=== PATIENT | male | born 1995 | race Caucasian/White ===

== ENCOUNTER 2018-12-05 12:46 | Emergency (ER) | payer OTHER ==
--- NOTE | 2018-12-05 13:37 | EDPHY ---
H & P Stated Complaint: lower back pain Source: Patient, Family (Father and mother) Exam Limitations: No limitations - Personal History Current Tetanus/Diphtheria Vaccine: Yes - Medical/Surgical History Hx Asthma: No Hx Chronic Respiratory Disease: No Hx Diabetes: No Hx Cardiac Disease: No Hx Renal Disease: No Hx Cirrhosis: No Hx Alcoholism: No Other PMH: LBP, spontaneous pneumothorax - Social History Smoking Status: Never smoked Time Seen by Provider: 12/05/18 13:37 HPI/ROS: HPI: This is a 23-year-old male who presents with Chief Complaint: Shortness of breath, lower back pain Location: Chest Quality: Shortness of breath Duration: Since last night Signs and Symptoms: + shortness of breath at rest, + shortness of breath on exertion, no cough, no chest pain, no palpitations, no lower extremity edema, no wheezing, no orthopnea, no paroxysmal nocturnal dyspnea, no fever, no injury/ trauma, no hemoptysis, no carpal pedal spasms Timing: Acute on chronic Severity: [id number] Context: Patient reports that yesterday evening when he returned from working at [employer] he started to feel short of breath at rest and inability to take a deep breath with the discomfort in his mid to lower back that was worsened with inspiration. Patient has a history of spontaneous pneumothorax mostly on the right side. Last pneumothorax occurred 2 weeks ago [facility]. History of uses a thorascopic surgery VATS). Was a [place] patient but now changed insurances to his stepfather's and Primary care provider is Dr. Jackson. Referral already made to Merchandising Stock Associate, Dr. Carter. Denies tobacco, marijuana use. Modifying Factors: None Comment: ROS: A comprehensive 10 system review of systems is otherwise negative aside from elements mentioned in the history of present illness. MEDICAL/SURGICAL/SOCIAL HISTORY: Medical history: Low back pain, spontaneous pneumothorax Surgical history: Bilateral lung surgeries Social history: Employed. CONSTITUTIONAL: Well-developed, well-nourished, thin young adult white male, awake and alert, no obvious distress HEENT: Atraumatic and normocephalic. NECK: supple, no midline tenderness Cardiovascular: Normal S1/S2, regular rate, regular rhythm, without murmur rub or gallop. PULMONARY/CHEST: Symmetrical and nontender. no crepitus. Clear to auscultation bilaterally. Good air movement. No accessory muscle usage. No stridor. ABDOMEN: Soft, nondistended, nontender. EXTREMITIES: 2/2 pulses, strength 5/5, DIP/PIP/MCP flexion/extension intact with good light touch sensation. no deformities, no clubbing, no cyanosis or edema. NEUROLOGICAL: no focal neuro deficits. GCS 15. Light touch sensation intact. SKIN: Warm and dry, no erythema. no rash. Good capillary refill. (Danielle Ellison) Constitutional: Initial Vital Signs Temperature (C) 36.3 C 12/05/18 12:49 Heart Rate 84 12/05/18 12:49 Respiratory Rate 18 12/05/18 12:49 Blood Pressure 111/83 H 12/05/18 12:49 O2 Sat (%) 98 12/05/18 12:49 O2 Delivery Mode Room Air Allergies/Adverse Reactions: No Known Allergies Allergy (Unverified 12/05/18 12:53) Home Medications: Medication Instructions Recorded NK [No Known Home Meds] 12/05/18 Medical Decision Making - Diagnostics Imaging Results: Imaging Impressions Chest X-Ray 12/05/18 13:39 Impression: Small right hydropneumothorax. Prior bilateral apical lung surgery. ADDENDUM: 12/05/18 1537 Impression: 1. Increasing right pleural effusion, with slight mass effect on the right heart border and mediastinum, new from prior study. ED Course/Re-evaluation: Vital signs reviewed and stable upon arrival. No hypoxia, respiratory distress. Oxygen sat 98% on room air. Chest x-ray ordered and shows Small right hydropneumothorax. Prior bilateral apical lung surgery. Dr. Hines consult to Dr. Humphrey who reviewed image via PACs. Requesting last x- ray from [facility] to compare. 1530: Chest x-ray images from October uploaded into PACs. Updated Dr. Tabor' s who is currently in surgery. Spoke with Dr. Humphrey who after review films recommends to discharge patient home with outpatient follow-up in 24 hr. Vital signs remain stable. 1715: End of shift. Signed over to Dr. Stokes pending Dr. Humphrey consult This patient was seen under the supervision of my secondary supervising physician. I evaluated care for this patient attending. Discussed this patient with Dr. Hines. (Danielle Ellison) Differential Diagnosis: Differential diagnosis includes but is not limited to pneumothorax. (Danielle Ellison) Other Provider: 1737: The patient seen by Dr. Humphrey, recommends discharge with office follow-up, he personally saw the patient and discussed with patient and family. (Kush Stokes) Departure - Departure Disposition: Home, Routine, Self-Care Clinical Impression: Spontaneous pneumothorax Condition: Good Instructions: Spontaneous Pneumothorax (ED) Additional Instructions: Return at once for any worsening symptoms or concerns. Referrals: Chad Jackson MD [Primary Care Provider] - As per Instructions Julisu Carter MD [Medical Doctor] - As per Instructions Cash Humphrey MD [Medical Doctor] - As per Instructions
[2018-12-05 17:44] VITALS: BP 118/80
--- NOTE | 2018-12-05 18:16 | PDCONSULT ---
Starting Sheet Tank Operator Note: #[id number] Surgical Consult Dictated S MD Kam, FACS
--- NOTE | 2018-12-05 18:52 | GCON ---
[f rep st] CONSULTATION SURGICAL CONSULT DATE OF CONSULTATION: 12/05/2018 CHIEF COMPLAINT: Right chest pain. HISTORY OF PRESENT ILLNESS: Patient is a 23-year-old male with multiple recurrent spontaneous pneumo thoraces over the past 18 months resulting in bilateral chest tubes, bilateral VATS twice on the left , once on the right. The final 2 procedures were performed with talc pleurodesis. One month ago donya betts experienced sharp onset of pain in the right side and was seen at [place] as an outpatient with a chest x-ray showing a small apical pneumothorax that was stable after 24 hours, and he resolved subs equently without intervention. Yesterday patient experienced similar symptoms and came to the emerge ncy room today for assessment at [facility] as his insurance has changed and he is no longer a [place] patient. Plain films were obtained in the in the emergency department, and patient was seen by Danielle Ellison PA-C. Surgical consultation was requested for discussion of management optikarri belle. The patient is sitting comfortably in room 15 in the emergency department [facility]. His O2 sat is 98% on room air, and he does not appear in respiratory distress. PAST MEDICAL HISTORY: Significant for multiple spontaneous pneumothoraces with bilateral VATS (2 paige es on the left, 1 time on the right) with talc pleurodesis. He has no known drug allergies. He has never smoked cigarettes. He quit smoking marijuana after the 1st pneumothorax occurred. 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 He is an avid snowboarder. He has no recent history of blunt chest trauma. FAMILY HISTORY: Noncontributory. REVIEW OF SYSTEMS: Patient denies fever, chills, hemoptysis, sputum production, blunt chest trauma, foreign travel. PHYSICAL EXAMINATION: GENERAL: Reveals a tall, slender, well-developed, young man who is in no acut e distress. VITALS: Blood pressure 118/80, heart rate is 60, respiratory rate is 16, O2 sat is 97% on room air, temperature is 36.3. HEENT/NECK: There is no cervical adenopathy. Trachea is midline. No crepitus in the neck. LUNGS: Slightly diminished breath sounds in the right apex, otherwise cl ear throughout, without rales, rhonchi or wheezing. HEART: Regular in rate and rhythm, without murm urs. Remainder of exam was deferred. X-RAYS: Patient's chest x-ray was evaluated, shows a small right-sided pneumothorax, somewhat less t pham 10% with minimal pleural fluid. Cardiac silhouette is unremarkable. There is evidence of left-s ided pleural thickening. A staple line could not be appreciated on plain film. Previous films from [place] were reviewed from approximately 1 month ago and appear similar. IMPRESSION: 1. Recurrent right pneumothorax, status post VATS talc pleurodesis. 2. Status post left VATS pleurodesis x2 for recurrent pneumothorax. RECOMMENDATIONS: Discussed the findings with the patient and his family. Given the fact he has had a talc pleurodesis, it is unlikely that he would develop a tension pneumothorax. Nonetheless, he traci cass has some source for recurrent pneumothorax, and we discussed the possibilities including residua l blebs on either the apex of the lung or the superior segment of the lower lobe. There is no immedi ate need for chest decompression, and I recommended that patient not work for the next few days and r est and obtain a repeat chest x-ray in 48-72 hours for evaluation. It would be helpful to review his prior operative reports and prior CT scan which was performed after his last surgery. The patient m ay ultimately require additional VATS and/or thoracotomy for definitive management. We discussed shahram gical options with possibility of referral to [facility] Thoracic Department to see Dr. Obed Salinas. /[id number]/MODL
== END 2018-12-05 17:43 | disposition home or self-care (01) ==
DX: M54.5 Low back pain (principal); J93.83 Other pneumothorax; Z98.890 Other specified postprocedural states

== ENCOUNTER → 2018-12-08 | Outpatient (CLI) | payer OTHER | LOC: FIMAGING 16:52 | PROVIDERS: ATTEND Surgery | DX: J93.83 Other pneumothorax (principal) ==

== ENCOUNTER 2019-04-03 12:14 | Inpatient (IN) | payer OTHER | END 2019-04-10 14:50 | disposition home or self-care (01) | LOC: F3N 12:14 → F3E 04-08 17:38 ==